=== PATIENT | female | born 1945 | race Caucasian/White ===

== ENCOUNTER 2025-05-31 12:17 | Outpatient (CLI) | payer MEDICARE, OTHER ==
[~2025-05-31] VITALS: Ht 152.4 cm; Wt 73.5 kg
[~2025-05-31 12:17] MED LIST: CITA20TA19 PO; DIPH25CA83 PO; FERR-86 PO; HYDR25TA4 PO; MULT-620 PO; OXYC-145 PO; PRAM0.253 PO; RIVA10TA PO
[2025-05-31 13:10] LABS: TOTAL HEMOGLOBIN 9.9 G/dl (12.0-16.0)
[2025-05-31 13:16] VITALS: PULSE 76; RESP 16; O2SAT 96
[2025-05-31] MEDS: albuterol 2.5 MG/3 ML nebule NEB ONE (14:04)
[2025-05-31 14:21] VITALS: PULSE 77; RESP 18
--- NOTE | 2025-05-31 15:30 | PROCEDURE NOTE - Respiratory ---
Procedure Note-Respiratory Providers to Copies To 1: TREVOR SAINZ MD Procedure Name: This is a complete pulmonary function study dated May 31, 2025. Hemoglobin measurement was done as part of the study. Spirometry measurements: There is substantial reduction in both the forced vital capacity and the FEV1. The FEV1 ratio is also reduced. All of the measured flow rates show significant reduction. After inhaled bronchodilator was administered, there is no appreciable change in the flow volume curve. Lung volume measurements: The total lung capacity and the functional residual capacity are both normal. There is mild elevation in the residual volume. Lung diffusion measurement: The DLCO measurement is in the normal range. It is noted that the KVO measurement is normal. There is slight loss of the alveolar volume measurement. It is noted that the hemoglobin measurement shows anemia with a hemoglobin measuring at 9.9 grams/deciliter. Airway resistance measurement: The airway resistance is slightly increased. Overall conclusion: This study is abnormal. 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 This is consistent with the patient's history of significant asthma. This patient should continue to use bronchodilator medication on a regular basis. The lung diffusion capacity is normal. It is noted that the patient has mild anemia. We have no previous studies for comparison. TREVOR SAINZ MD May 31, 2025 15:30
== END 2025-05-31 23:59 | disposition home or self-care (01) ==
LOC: RT 12:17
PROVIDERS: ATTEND Internal Medicine Pulmonary Disease
DX: J45.998 Other asthma (principal); J98.8 Other specified respiratory disorders
CPT/HCPCS: 85018; 94060; 94727; 94729; 94760; C1758